=== PATIENT | male | born 1995 | race Caucasian/White ===

== ENCOUNTER 2023-11-24 20:30 | Emergency (ER) | payer MEDICAID ==
[~2023-11-24] VITALS: Ht 177.8 cm; Wt 96.4 kg
[2023-11-24 21:29] LABS: BASO % 0.3 % (0.0-2.0); EOS # 0.1 K/mm3 (0.0-0.7); EOS % 0.6 % (0.0-4.0); GRAN % 77.1 % (42.2-75.2); HEMATOCRIT 46.4 % (42.0-52.0); HEMOGLOBIN 15.6 g/dl (13.5-18.0); LYMPH # 1.8 K/mm3 (1.2-3.4); LYMPH % 15.3 % (20.0-51.0); MEAN CELL VOLUME 90 fl (80.0-100.0); MEAN CORPUSCULAR HEMOGLOBIN 30 pg (27-31); MEAN CORPUSCULAR HGB CONC 34 g/dl (33.0-37.0); MEAN PLATELET VOLUME 10.7 fl (7.4-10.4); MONO # 0.7 K/mm3 (0.1-0.6); MONO % 6.3 % (1.7-9.3); PLATELET COUNT 295 K/mm3 (130-400); RED BLOOD COUNT 5.17 M/mm3 (4.20-5.60); REDCELL DISTRIBUTION WIDTH-CV 12.6 % (11.5-14.5)
[2023-11-24 21:54] LABS: ALBUMIN 4.1 gm/dL (3.5-5.0); BILIRUBIN,TOTAL 0.7 mg/dL (0.2-1.2); C-REACTIVE PROTEIN 0.66 mg/dL (0.00-0.50); CALCIUM 9.6 mg/dL (8.4-10.2); CREATININE, serum 0.89 mg/dL (0.72-1.25); POTASSIUM 3.5 mmol/L (3.5-4.5); TOTAL PROTEIN 6.9 gm/dL (6.2-8.1)
[2023-11-24] MEDS ORDERED: CLEOCIN HCL300 MG PO (23:26)
[2023-11-24 23:46] VITALS: BP 119/78; PULSE 87; TEMP 98.5
== END 2023-11-24 23:46 | disposition home or self-care (01) ==
LOC: COL.ER 20:30 → EDBD 20:31 → COL.ER 20:31
PROVIDERS: Nurse Practitioner
DX: L03.213 Periorbital cellulitis (principal); F17.290 Nicotine dependence, other tobacco product, uncomplicated; Z88.1 Allergy status to other antibiotic agents
CPT/HCPCS: J0737; Q9967